=== PATIENT | female | born 1990 | race Caucasian/White ===

== ENCOUNTER 2019-04-17 21:19 | Emergency (ER) | payer OTHER, SELFPAY ==
[2019-04-17 21:19] VITALS: BP 122/83; PULSE 94; RESP 14; TEMP 36.7; O2SAT 100; BMI 24.1
[2019-04-17 22:11] LABS: Absolute Lymphocyte Count 2.12 X10^3/uL (0.83-4.51); Absolute Neutrophil Count 4.1 X10^3/uL (2.0-7.7); Basophil# 0.03 X10^3/uL; Basophil% 0.4 % (0-1); Eosinophil# 0.13 X10^3/uL; Eosinophils% 1.9 % (0-5); Hematocrit 40.7 % (37-47); Hemoglobin 13.5 g/dL (12.0-15.0); Lymphocyte # 2.12 X10^3/ul (4.0); Lymphocyte % 30.3 % (19-41); Mean Corp Hgb Conc 33.2 g/dL (32-36); Mean Corpuscular Volume 90.4 fL (81-99); Mean Platelet Vol. 9.4 fl (6.2-12.0); Monocyte# 0.61 X10^3/uL; Monocyte% 8.7 % (0-10); NRBC Flagged by Analyzer 0 % (0-5); Neutrophil # 4.08 X10^3/uL (2.7-7.7); Neutrophil % 58.4 % (47-70); Platelet Count 267 K/mm3 (150-450); RBC Distribution Width CV 12.1 % (11.6-14.6); RBC Distribution Width SD 39.7 fl (35.1-43.9)
[2019-04-17 22:12] LABS: Internal QC Validated? YES +Cl - CLEAR BKGD; Pregnancy, Serum, hCG Quali. NEGATIVE Negative
[2019-04-17 22:17] LABS: Anion Gap 8 (5-15); BUN 10 mg/dL (7-18); BUN/Creat Ratio 10.2 RATIO (10-20); Calcium,Total 9.2 mg/dL (8.5-10.1); Chloride 107 mmol/L (98-107); Creatinine, Serum 0.98 mg/dL (0.55-1.02); EST Glomerular Filtration Rate 73 mL/min (>60); Est Glom Filt Rate - Afr Amer 88 mL/min (>60); Estimated Creatinine Clearance 78.28 ml/min; Glucose 106 mg/dL (74-106); Potassium 3.7 mmol/L (3.5-5.1); Sodium Level 140 mmol/L (136-145)
--- NOTE | 2019-04-17 22:17 | ED.VIS.GEN ---
History of Present Illness Chief Complaint: Abd Pain Informant: Patient Onset: Today Narrative: Lower abdominal pain suddenly 1 hour prior to arrival, sharp in nature. Intermittent nausea secondary to pain. No vomiting. Normal bowel movements. No urinary symptoms. Last menstrual period 3 weeks ago. Denies history of kidney stones. Took Motrin with no relief. States had ovarian cyst requiring drainage in the past. No allergies. No past medical history. Prior similar symptoms: No Past Medical History - Allergies and Home Meds Allergies/Adverse Reactions: Allergies No Known Allergies Allergy (Verified 04/17/19 21:19) Primary Care Physician: Goran Oneil PA [Primary Care Provider] - Past Medical History: - - Ovarian cysts Surgical History: tonsillectomy Smoking Status: Never smoker Review of Systems General: Denies: Chills, Fever, Sweats Eyes: Denies: Visual changes - bilaterally, Diplopia ENT: Denies: Rhinorrhea, Sore throat Cardiovascular: Denies: Chest pain, Palpitations Respiratory: Denies: Dyspnea, Cough, Dyspnea on exertion Gastrointestinal: Reports: Abdominal pain. Denies: Nausea, Vomiting, Diarrhea, Melena, Hematochezia Genitourinary: Denies: Dysuria, Hematuria, Frequency Musculoskeletal: Denies: Back pain, Extremity Pain Skin: Denies: Rash, Wounds Neurological: Denies: Headache, Weakness, Numbness Physical Exam Vital Signs/Narrative: Vital Signs Temp Pulse Resp BP Pulse Ox 04/17/19 21:19 98.0 F 94 14 122/83 H 100 Inital Vital Signs reviewed: Yes General: Well nourished, Well developed, No Acute Distress Head: Normocephalic, Atraumatic Eyes: Perrl, EOMI ENT: Moist mucous membranes, No rhinorrhea Neck: Supple, Nontender Cardiovascular: Regular rate, Regular rhythm, No murmurs Respiratory: No distress, CTA bilaterally, Chest nontender Abdomen: Soft, Nondistended, Normal bowel sounds, - - Mild tenderness left lower abdomen pelvis without guarding or rebound. Back: Nontender, Normal Inspection Extremities: Nontender, No edema Skin: Normal color, No rash Neurological: Alert, Oriented x3, Cranial nerves II-XII grossly intact, Normal Strength, Normal Sensation Psychological: Normal affect, Normal Mood Diagnostic/Tx/Re-eval Abnormal Lab Results 04/17/19 04/17/19 04/17/19 21:25 21:25 21:25 WBC 7.0 RBC 4.50 Hgb 13.5 Hct 40.7 MCV 90.4 MCH 30.0 MCHC 33.2 RDW Std Deviation 39.7 RDW Coeff of Jody 12.1 Plt Count 267 MPV 9.4 Immature Gran % (Auto) 0.300 Neut % (Auto) 58.4 Lymph % (Auto) 30.3 [place] % (Auto) 8.7 Eos % (Auto) 1.9 Baso % (Auto) 0.4 Absolute Neuts (auto) 4.1 Absolute Lymphs (auto) 2.12 Nucleated RBC % 0 Sodium 140 Potassium 3.7 Chloride 107 Carbon Dioxide 25.0 Anion Gap 8 BUN 10 Creatinine 0.98 Estim Creat Clear Calc 78.28 Est GFR (MDRD) Af Amer 88 Est GFR (MDRD) Non-Af 73 BUN/Creatinine Ratio 10.2 Glucose 106 Calcium 9.2 Serum , Qual NEGATIVE Urine Color Urine Clarity Urine pH Ur Specific [place] Urine Protein Urine Glucose (UA) Urine Ketones Urine Occult Blood Urine Nitrite Urine Bilirubin Urine Urobilinogen Ur Leukocyte Esterase Urine RBC Urine WBC Ur Squamous Epith Cells Urine Bacteria Hyaline Casts Urine Mucus 04/17/19 22:27 WBC RBC Hgb Hct MCV MCH MCHC RDW Std Deviation RDW Coeff of Jody Plt Count MPV Immature Gran % (Auto) Neut % (Auto) Lymph % (Auto) [place] % (Auto) Eos % (Auto) Baso % (Auto) Absolute Neuts (auto) Absolute Lymphs (auto) Nucleated RBC % Sodium Potassium Chloride Carbon Dioxide Anion Gap BUN Creatinine Estim Creat Clear Calc Est GFR (MDRD) Af Amer Est GFR (MDRD) Non-Af BUN/Creatinine Ratio Glucose Calcium Serum , Qual Urine Color Yellow Urine Clarity Clear Urine pH 5.0 Ur Specific [place] 1.030 Urine Protein 15 H Urine Glucose (UA) Normal Urine Ketones 5 H Urine Occult Blood Negative Urine Nitrite Negative Urine Bilirubin Negative Urine Urobilinogen Normal Ur Leukocyte Esterase Negative Urine RBC 0 SEEN Urine WBC 0-5 SEEN Ur Squamous Epith Cells 0-5 SEEN Urine Bacteria 0 SEEN Hyaline Casts 0-5 SEEN Urine Mucus 1+ Clinical Impression(s) from Imaging Studies Abdomen/Pelvis CT 04/17/19 22:32 IMPRESSION: Free pelvic fluid. 3.6 x 3.3 cm left ovary cyst. No evidence of appendicitis, acute intestinal pathology, or acute obstructive uropathy. Electronically Signed: Sergey Fong MD at 23:36 EST Tel , Service support , Clinical Impression(s) from Imaging Studies Abdomen/Pelvis CT 04/17/19 22:32 IMPRESSION: Free pelvic fluid. 3.6 x 3.3 cm left ovary cyst. No evidence of appendicitis, acute intestinal pathology, or acute obstructive uropathy. Electronically Signed: Sergey Fong MD at 23:36 EST Tel , Service support , Transvaginal US 04/17/19 23:07 IMPRESSION: Complex left ovary cyst measuring 4.4 x 3.0 x 2.6 cm. Dominant right ovary follicle measuring 13 x 11 x 8 mm. Moderate free pelvic fluid. No evidence of ovary torsion. Electronically Signed: Sergey Fong MD at 0:13 EST Tel , Service support , - Medical Decision Making Patient slightly uncomfortable, tender left lower quadrant pelvic region. Labs obtain normal, hCG negative. She is sent for CT scan negative for any obstructive uropathy, however noted left ovarian cyst of 3.6 x 3.3 cm. She was given morphine for her symptoms, with acute onset of symptoms, she is sent for ultrasound pelvis for further evaluation to rule out torsion. Results are pending at time also reevaluation patient is more comfortable. She reports she has seen Dr. Jamil in the past and had a lysis of her cyst 2 years ago as an outpatient. This will be planned for follow-up of her ultrasound returns with no significant concerns. 0017: Results of ultrasound returned noting 4.4 x 3.0 x 2.6 cm left complex cyst there is positive flow to the ovary. 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 All questions were answered. ED Disposition - Plan for ED Patient: Disposition: Home or Assisted Living Diagnosis: Left ovarian cyst Instructions: Ovarian Cyst Referrals: Goran Oneil PA [Primary Care Provider] - Additional Instructions: Follow up with your [employer] Operator, Dr. Jamil for re-evaluation.
[2019-04-17 22:32] LABS: Bacteria 0 SEEN /hpf (None Seen); Red Blood Cells-Urine 0 SEEN /hpf (0-5)
--- NOTE | 2019-04-17 22:32 | CT_ITS ---
STUDY: CT ABDOMEN AND PELVIS WITHOUT CONTRAST REASON FOR EXAM: Female, 28 years old. 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 RADIATION DOSAGE (If Supplied By Facility): CTDIvol = ( 11.40 ) mGy, DLP = ( 547.00 ) mGycm TECHNIQUE: Transaxial images were obtained from the dome of the diaphragm to the symphysis pubis without oral contrast, and without intravenous contrast. Sagittal and coronal images were reconstructed. Individualized dose optimization techniques were used for this CT. COMPARISON: None. FINDINGS: The visualized lung bases are unremarkable. The visualized portions of the heart are within normal limits. Normal liver. Normal gallbladder and extrahepatic biliary system. Normal spleen. Normal pancreas. Normal bilateral adrenal glands. Normal right kidney. Normal left kidney. Normal visualized stomach. Normal small intestine. Normal colon. The appendix is visualized and appears normal. Normal abdominal aorta. Normal inferior vena cava. Normal retroperitoneum. Normal urinary bladder. Free pelvic fluid. 3.6 x 3.3 cm left ovary cyst. Normal abdominal wall. Normal osseous structures. CT/Abdomen/Pelvis without Cont IMPRESSION: Free pelvic fluid. 3.6 x 3.3 cm left ovary cyst. No evidence of appendicitis, acute intestinal pathology, or acute obstructive uropathy. Electronically Signed: Sergey Fong MD at 23:36 EST Tel , Service support ,
[2019-04-17] MEDS: 0.9% Normal Saline 1,000 ML 999 ML IV (22:33)
[2019-04-17] MEDS: Morphine 4 MG/ML Syringe IV (22:33)
[2019-04-17 22:44] LABS: Color, Urine Yellow (Yellow); Glucose, Dipstick Normal (Normal); Ketone-Dipstick 5 mg/dl (Negative); Leukocyte Esterase-Dipstick Negative /ul (Negative); Nitrite-Dipstick Negative (Negative); Occult Blood-Urine Negative /ul (Negative); Protein-Dipstick 15 mg/dl (Negative); Urine Bilirubin Dipstick Negative (Negative); Urine Clarity Clear (Clear); Urine Urobilinogen Normal (Normal)
--- NOTE | 2019-04-17 23:07 | US_ITS ---
STUDY: ULTRASOUND OF THE FEMALE PELVIS - COMPLETE REASON FOR EXAM: Female, 28 years old. LOWER PELVIC PAIN X 2 HOURS SEVERE LMP: 03/29/2019 TECHNIQUE: Transvaginal TECHNICAL QUALITY: Adequate. COMPARISON: CT same day FINDINGS: The uterus is anteverted and is in a midline position. The uterus measures 8.3 x 5.0 x 3.2 cm. There is a Nabothian cyst of the cervix. The endometrium measures 10 mm in thickness, and is hyperechoic. There is no demonstrated endometrial mass. There is no demonstrated myometrial mass. I.U.D. - The patient does not have an I.U.D. The right ovary is visualized. The right ovary measures 3.1 x 2.3 x 1.7 cm. Dominant right ovary follicle measuring 13 x 11 x 8 mm. There is no visualized right adnexal mass or complex lesion. There is normal arterial and normal venous vascularity. The left ovary is visualized. The left ovary measures 5.9 x 4.6 x 3.6 cm. Complex left ovary cyst measuring 4.4 x 3.0 x 2.6 cm. There is no visualized left adnexal mass or complex lesion. There is normal arterial and normal venous vascularity. There is a moderate amount of fluid in the cul-de-sac. Polycystic ovary disease: No. US/Transvaginal Non- IMPRESSION: Complex left ovary cyst measuring 4.4 x 3.0 x 2.6 cm. Dominant right ovary follicle measuring 13 x 11 x 8 mm. Moderate free pelvic fluid. No evidence of ovary torsion. Electronically Signed: Sergey Fong MD at 0:13 EST Tel , Service support ,
[2019-04-17 23:19] LABS: Hyaline Cast 0-5 SEEN /lpf (0-5); Mucous, Urine 1+ /hpf (<or=2+); Squamous Epithelial Cells - UA 0-5 SEEN /hpf (5-10); White Blood Cells 0-5 SEEN /hpf (0-5)
[2019-04-18 00:37] VITALS: PULSE 82; RESP 16; O2SAT 100; O2SAT 910
== END 2019-04-18 00:38 | disposition home or self-care (01) ==
PROVIDERS: Emergency Provider Emergency Medicine; PCP Physician Assistant; Referring Provider Physician Assistant
DX: N83.202 Unspecified ovarian cyst, left side (principal); R10.2 Pelvic and perineal pain
CPT/HCPCS: 74176; 76830; 80048; 81001; 84703; 85025; 93976; 96361; 96374; 99283; J7030; A4216

== ENCOUNTER 2022-02-09 18:45 | Inpatient (IN) | payer OTHER, SELFPAY ==
[2022-02-09] VITALS (13 sets, daily range): BP systolic 130–145; BP diastolic 86–98; PULSE 74–101; TEMP 36.6–36.9; O2SAT 97–98; BMI 33.4
[2022-02-09 17:48] LABS: Hematocrit 34.2 % (37-47); Hemoglobin 11.7 g/dL (12.0-15.0); Mean Corp Hgb Conc 34.2 g/dL (32-36); Mean Corpuscular Hgb 31.1 pg (27.0-32.0); Mean Platelet Vol. 9.4 fl (6.2-12.0); Platelet Count 229 K/mm3 (150-450); RBC Distribution Width CV 12.7 % (11.6-14.6); RBC Distribution Width SD 41.6 fl (35.1-43.9); Red Blood Count 3.76 M/mm3 (4.2-5.4); White Blood Count 11.2 K/mm3 (4.4-11.0)
[2022-02-09 18:10] LABS: AST(SGOT) 16 U/L (15-37); Alanine Aminotransfer ALT/SGPT 20 U/L (13-56); Creatinine, Serum 0.57 mg/dL (0.55-1.02); EST Glomerular Filtration Rate 134 mL/min (>60); Est Glom Filt Rate - Afr Amer 162 mL/min (>60); Estimated Creatinine Clearance 131.04 ml/min; Uric Acid 4.4 mg/dL (2.6-6.0)
[2022-02-09 18:26] LABS: Protein, Urine (Random) < 6.0 mg/dL (<11.9)
--- NOTE | 2022-02-09 19:04 | PCM.HP.OB ---
HPI - General General Date of Admission: 02/09/22 HPI Narrative ALLISON MACK, is a 31 F at 37.1 weeks gestation who was sent over from the office for elevated blood pressures. She presented to unit and denies any headaches, vision changes, RUQ pain or swelling. Blood pressures while here on unit remain 130-140/80-90's. PIH labs within normal range. complicated by GDM A2, Hx of ADD, Hx of HSV, and arrhythmia that has resolved. Maternal Data Information LC Calculator Estimated Delivery Date Method Current WG Current Estimate 03/01/22 Manual 37w 1d PFSH [facility] Medical History Puncture wound of plantar aspect of left foot Home Medications dextroamphetamine-amphetamine ER 25 mg 24hr capsule,extend release (Adderall XR) 25 mg PO DAILY 07/14/20 [History Last Taken Unknown] fluconazole 150 mg tablet (Diflucan) 150 mg PO Q3D 2 doses #2 tabs 09/16/20 [Rx Last Taken Unknown] cephalexin 500 mg capsule 500 mg PO Q8H #30 caps 11/09/21 [Rx Last Taken Unknown] Novolin N Flexpen 3 ml OTHER DAILY 02/09/22 [History Last Taken 02/08/22 22:00] PNV #[id number] acid-dha 1 cap PO/SL DAILY 02/09/22 [History Last Taken 02/09/22 16:54] magnesium 200 mg tablet 200 mg PO DAILY 02/09/22 [History Last Taken Unknown] valacyclovir 1 gram tablet (Valtrex) 1,000 mg PO DAILY 02/09/22 [History Last Taken Unknown] Allergy/AdvReac Type Severity Reaction Status Date / Time grass pollen Allergy Mild RUNNY NOSE Verified 09/28/20 13:41 Surgical History Hx of tonsillectomy Social History Smoking Status: Never smoker alcohol intake: current substance use type: does not use NST FHR Rate Baby A Baseline: 125 Variability:: Moderate Accelerations:: 15 x 15 Decelerations:: None NST Reactive:: Yes FHR Category:: Category I Uterine Activity:: NONE ROS Eyes Eyes: Denies blurry vision, change in vision or spots in vision ENT HEENT: Denies dizziness or headache(s) Cardiovascular Cardiovascular: Denies abdominal pain, chest pain or dyspnea Respiratory/Chest Respiratory/Chest: Denies cough, dyspnea, shortness of breath at rest or shortness of breath with exertion Gastrointestinal Gastrointestinal: Denies abdominal pain, diarrhea or vomiting Genitourinary Genitourinary: Denies change in urinary stream, difficulty urinating or dysuria Musculoskeletal Musculoskeletal: Reports none Integumentary Integumentary: Denies rash Neurologic Neurologic: Denies dizziness, headache(s), memory loss or weakness Psychiatric Psychiatric: Reports none Vital Signs Vital Signs Vital Signs: 02/09/22 16:52 02/09/22 16:52 02/09/22 16:52 Temperature Temperature Source Temporal Pulse Rate 91 Blood Pressure 145/97 H BP Systolic 145 BP Diastolic 97 02/09/22 16:52 02/09/22 17:07 02/09/22 17:07 Temperature 97.8 F Temperature Source Pulse Rate 77 Blood Pressure 141/90 H BP Systolic 141 BP Diastolic 90 02/09/22 17:23 02/09/22 17:23 02/09/22 17:37 Temperature Temperature Source Pulse Rate 86 Blood Pressure 130/98 H 130/90 H BP Systolic 130 130 BP Diastolic 98 90 02/09/22 17:37 02/09/22 17:53 02/09/22 17:53 Temperature Temperature Source Pulse Rate 90 87 Blood Pressure 130/86 H BP Systolic 130 BP Diastolic 86 02/09/22 18:07 02/09/22 18:07 02/09/22 18:23 Temperature Temperature Source Pulse Rate 77 Blood Pressure 136/87 H 142/88 H BP Systolic 136 142 BP Diastolic 87 88 02/09/22 18:23 02/09/22 18:37 02/09/22 18:37 Temperature Temperature Source Pulse Rate 85 101 H Blood Pressure 139/90 H BP Systolic 139 BP Diastolic 90 Weight Weight: 201 lb Body Mass Index (BMI) 33.4 Physical Exam Const alert, oriented x3 and no apparent distress General Appearance: cooperative Orientation / Consciousness: awake Exam Limitations: no limitations HEENT normocephalic Head and Scalp: normal to inspection Eyes General Eye: normal appearance of both eyes Neck full ROM and no lymphadenopathy Lymph Lymphatic: no lymphadenopathy noted Chest inspection of chest normal Resp normal respiratory effort, normal air movement and clear to auscultation bilaterally Effort and Inspection: able to speak in complete sentences and symmetric chest movement Cardio regular rate and regular rhythm GI normal to inspection, nondistended, normoactive bowel sounds Manual OB Exam: presentation cephalic Back/Spine normal ROM Extremity full ROM and no calf tenderness Skin no rashes or lesions noted General Skin Exam: no breakdown Neuro oriented x3 and CN's II-XII intact bilaterally Psych mental status grossly normal and thought process normal Labs Labs Labs: Blood Type Pending Antibody Screen Pending Hct 34.2 % (37-47) L Hgb 11.7 g/dL (12.0-15.0) L A+ Rubella- immune HB - neg HC neg HIV NR RPR- NR GBS negative Assessment & Plan (1) 37 weeks gestation of : (2) Gestational hypertension: (3) GDM, class A2: (4) arrhythmia affecting , antepartum: COMMENT: Normal echo and arrhythmia resolved on most recent BPP (5) History of herpes labialis: PLAN: Plan Admit to labor and delivery for induction NST reactive, Cat. 1 tracing HTN protocol activated GDM protocol activated TAUS confirms vertex position CE- closed/ thick/ high GBS negative Hx oral HSV- taking Valtrex PO daily Start Cytotec 25 mcg PV x 1 dose then increase to 50 mcg PV every [address] José involved with admission and will be assuming care of patient.
[2022-02-09] MEDS: Lactated Ringers 1,000 ML 50 ML IV (21:00)
[2022-02-09] MEDS: miSOPROStol 25 MCG TABLET VAGINAL (21:05)
[2022-02-09 21:46] LABS: Bedside Glucose 83 mg/dL (74-106)
[2022-02-09] MEDS: Acyclovir 200 MG Capsule 400 MG PO (21:55)
[2022-02-09] MEDS: Acetaminophen 500 MG Tablet PO (21:56)
[2022-02-09] MEDS: Insulin NPH Human 100 UNITS/ML PEN 9 UNITS SC (22:24)
[2022-02-09 22:36] LABS: Bedside Glucose 107 mg/dL (74-106)
[2022-02-10] VITALS (64 sets, daily range): BP systolic 100–154; BP diastolic 55–96; PULSE 61–107; RESP 16–18; TEMP 36.2–37.4; O2SAT 86–100
[2022-02-10] MEDS: 0.9% Saline Lock 10 ML Syringe IV ×3 (01:34→17:50)
[2022-02-10] MEDS: fentaNYL 100 MCG/2 ML Ampul IV ×3 (01:34→06:06)
[2022-02-10] MEDS: miSOPROStol 50 MCG TABLET PO (01:50)
[2022-02-10 02:10] LABS: Bedside Glucose 81 mg/dL (74-106)
[2022-02-10 05:46] LABS: Bedside Glucose 81 mg/dL (74-106)
[2022-02-10] MEDS: LACTATED RINGERS 500 ML 999 ML IV ×4 (05:50→11:10)
[2022-02-10] MEDS: HYDROmorphone 1 MG/ML Syringe IV (08:16)
[2022-02-10] MEDS: 0.9% Normal Saline Single 100 ML IV.SOLN. INTRA-UTER (08:45)
--- NOTE | 2022-02-10 09:12 | PCM.PN.BLA ---
Progress Note Patient seen at bedside. Tearful and reporting pain with contractions. Interested in pain medication at this time. Physical Exam Const alert and no apparent distress General Appearance: cooperative Orientation / Consciousness: awake Exam Limitations: no limitations HEENT normocephalic Eyes General Eye: normal appearance of both eyes Neck full ROM Chest inspection of chest normal Resp normal respiratory effort and normal air movement Effort and Inspection: symmetric chest movement Auscultation: clear to auscultation bilaterally Cardio regular rate GI soft to palpation, non-tender and non-distended Inspection: and other Back/Spine normal ROM Extremity full ROM, normal capillary refill and no calf tenderness Skin no rashes or lesions noted Neuro oriented x3 and CN's II-XII intact bilaterally Psych mental status grossly normal Assessment & Plan Assessment/Plan (1) 37 weeks gestation of : (2) Gestational hypertension: (3) GDM, class A2: (4) Anxiety: PLAN: Plan CE- 1/60/-3- Weinstein bulb placed without difficulty and balloon filled with 30 cc N/S NST reactive, Cat. 1 tracing Pain medication as indicated Epidural once weinstein bulb out DR. Arnav mcarthur
[2022-02-10 09:35] LABS: Bedside Glucose 104 mg/dL (74-106)
[2022-02-10] MEDS: Acyclovir 200 MG Capsule 400 MG PO ×2 (09:41→21:56)
[2022-02-10] MEDS: Oxytocin 15 Units/NS 250ml 15 UNITS/250 ML IV.SOLN 2 UNITS IV (09:45)
[2022-02-10] MEDS: Lactated Ringers 1,000 ML 200 ML IV (10:59)
[2022-02-10] MEDS: fentaNYL-bupivacaine (epidural) 100 ML BAG EPIDURAL (10:59)
[2022-02-10] MEDS: Ondansetron 4 MG/2 ML Vial IV (11:27)
--- NOTE | 2022-02-10 11:30 | HP.PCM.OB_ITS ---
HPI - General General Date of Admission: 02/09/22 Date of Service: 02/10/22 Chief Complaint: elevated BP HPI Narrative ALLISON MACK, is a 31-year-old 1 para 0 who presented at 37 weeks on 02/09/2022 to the office with increased blood pressure. She was sent to labor and delivery and found to have persistently elevated blood pressures consistent with gestational hypertension. She denied any headache or blurry vision. She had no epigastric pain. Her has been complicated to date by insulin- dependent gestational diabetes. Maternal Data Information LC Calculator Estimated Delivery Date Method Current WG Current Estimate 03/01/22 Manual 37w 2d Final LC: 03/02/22 Gestational age: 37 PFSH PFSH Medical History (Updated 02/10/22 @ 11:[address] Ivy José MD) Gestational diabetes Puncture wound of plantar aspect of left foot Home Medications dextroamphetamine-amphetamine ER 25 mg 24hr capsule,extend release (Adderall XR) 25 mg PO DAILY concentration 07/14/20 [History Last Taken 06/26/21] fluconazole 150 mg tablet (Diflucan) 150 mg PO Q3D 2 doses #2 tabs 09/16/20 [Rx Last Taken Unknown] cephalexin 500 mg capsule 500 mg PO Q8H #30 caps 11/09/21 [Rx Last Taken Unknown] Novolin N Flexpen 3 ml OTHER DAILY 02/09/22 [History Last Taken 02/08/22 22:00] PNV #41-[id number]-[id number] acid-dha 1 cap PO/SL DAILY 02/09/22 [History Last Taken 02/09/22 16:54] magnesium 200 mg tablet 200 mg PO DAILY 02/09/22 [History Last Taken Unknown] valacyclovir 1 gram tablet (Valtrex) 1,000 mg PO DAILY 02/09/22 [History Last Taken Unknown] Allergy/AdvReac Type Severity Reaction Status Date / Time grass pollen Allergy Mild RUNNY NOSE Verified 09/28/20 13:41 Surgical History Hx of tonsillectomy Social History Smoking Status: Never smoker alcohol intake: current substance use type: does not use History Elective abortions Hx Para 0 Spontaneous abortions Hx # Term Pregnancies Ectopic pregnancies Hx # Pregnancies Multiple births # of living children Visit Details OB Flowsheet Initial Weight: Not Recorded Date -?-?-?-?-?-?-?-?-?-?-?-?- EGA Weight BP Urine Prot -?-?-?-?-?-?-?-?-?-?-?-?- Glucose FHR FuHt Pres Dilation -?-?-?-?-?-?-?-?-?-?-?-?- Effaced St Visit Note 02/09/22 -?-?-?-?-?-?-?-?-?-?-?-?- 37w 1d 91.172 kg 145/97 141/90 130/98 130/90 130/86 136/87 142/88 139/90 136/91 142/90 114/68 137/92 142/96 129/86 144/85 134/86 135/89 154/93 135/86 132/77 128/77 124/73 125/73 117/67 117/72 115/67 113/64 111/69 100/55 104/58 123/76 115/66 -?-?-?-?--?-?-?-?-?-?-?-?- -?-?-?-?-?-?-?-?-?-?-?-?- ROS Constitutional Constitutional: Denies fatigue, fever(s) or malaise Eyes Eyes: Denies change in vision ENT HEENT: Denies dizziness or headache(s) Cardiovascular Cardiovascular: Denies chest pain, dyspnea or lightheadedness Respiratory/Chest Respiratory/Chest: Denies cough or dyspnea Gastrointestinal Gastrointestinal: Denies change in bowel habits Genitourinary Genitourinary: Denies burning urination or genital lesions Integumentary Integumentary: Denies rash Neurologic Neurologic: Denies confusion, dizziness, headache(s), numbness or weakness Vital Signs Vital Signs Vital Signs: 02/09/22 16:52 02/09/22 16:52 02/09/22 16:52 Temperature Temperature Source Temporal Pulse Rate 91 Blood Pressure 145/97 H BP Systolic 145 BP Diastolic 97 Pulse Ox 02/09/22 16:52 02/09/22 17:07 02/09/22 17:07 Temperature 97.8 F Temperature Source Pulse Rate 77 Blood Pressure 141/90 H BP Systolic 141 BP Diastolic 90 Pulse Ox 02/09/22 17:23 02/09/22 17:23 02/09/22 17:37 Temperature Temperature Source Pulse Rate 86 Blood Pressure 130/98 H 130/90 H BP Systolic 130 130 BP Diastolic 98 90 Pulse Ox 02/09/22 17:37 02/09/22 17:53 02/09/22 17:53 Temperature Temperature Source Pulse Rate 90 87 Blood Pressure 130/86 H BP Systolic 130 BP Diastolic 86 Pulse Ox 02/09/22 18:07 02/09/22 18:07 02/09/22 18:23 Temperature Temperature Source Pulse Rate 77 Blood Pressure 136/87 H 142/88 H BP Systolic 136 142 BP Diastolic 87 88 Pulse Ox 02/09/22 18:23 02/09/22 18:37 02/09/22 18:37 Temperature Temperature Source Pulse Rate 85 101 H Blood Pressure 139/90 H BP Systolic 139 BP Diastolic 90 Pulse Ox 02/09/22 19:47 02/09/22 19:47 02/09/22 20:35 Temperature Temperature Source Pulse Rate 75 Blood Pressure 136/91 H BP Systolic 136 BP Diastolic 91 Pulse Ox 98 02/09/22 20:35 02/09/22 20:35 02/09/22 20:37 Temperature Temperature Source Temporal Pulse Rate 79 94 Blood Pressure BP Systolic BP Diastolic Pulse Ox 02/09/22 20:37 02/09/22 20:35 02/09/22 22:22 Temperature 98.5 F Temperature Source Pulse Rate Blood Pressure 142/90 H BP Systolic 142 BP Diastolic 90 Pulse Ox 97 02/09/22 22:22 02/09/22 22:23 02/09/22 22:23 Temperature Temperature Source Pulse Rate 74 74 Blood Pressure BP Systolic BP Diastolic Pulse Ox 97 02/10/22 01:00 02/10/22 01:00 02/10/22 01:00 Temperature Temperature Source Temporal Pulse Rate 80 Blood Pressure 114/68 BP Systolic 114 BP Diastolic 68 Pulse Ox 02/10/22 01:00 02/10/22 04:06 02/10/22 04:06 Temperature 98.5 F Temperature Source Pulse Rate 73 Blood Pressure BP Systolic BP Diastolic Pulse Ox 97 02/10/22 04:11 02/10/22 04:11 02/10/22 05:20 Temperature Temperature Source Pulse Rate 77 Blood Pressure 137/92 H BP Systolic 137 BP Diastolic 92 Pulse Ox 97 02/10/22 05:20 02/10/22 05:21 02/10/22 05:21 Temperature Temperature Source Pulse Rate 76 69 Blood Pressure 142/96 H BP Systolic 142 BP Diastolic 96 Pulse Ox 02/10/22 05:20 02/10/22 05:20 02/10/22 05:23 Temperature 97.2 F L Temperature Source Temporal Pulse Rate 68 Blood Pressure BP Systolic BP Diastolic Pulse Ox 02/10/22 05:23 02/10/22 07:21 02/10/22 07:21 Temperature Temperature Source Pulse Rate 71 Blood Pressure 129/86 H BP Systolic 129 BP Diastolic 86 Pulse Ox 97 02/10/22 07:20 02/10/22 07:20 02/10/22 08:48 Temperature 97.4 F L Temperature Source Temporal Pulse Rate Blood Pressure 144/85 H BP Systolic 144 BP Diastolic 85 Pulse Ox 02/10/22 08:48 02/10/22 09:32 02/10/22 09:32 Temperature Temperature Source Pulse Rate 71 63 Blood Pressure 134/86 H BP Systolic 134 BP Diastolic 86 Pulse Ox 02/10/22 10:01 02/10/22 10:01 02/10/22 10:06 Temperature Temperature Source Pulse Rate 68 65 Blood Pressure BP Systolic BP Diastolic Pulse Ox 99 02/10/22 10:06 02/10/22 10:08 02/10/22 10:08 Temperature Temperature Source Pulse Rate 80 Blood Pressure 135/89 H BP Systolic 135 BP Diastolic 89 Pulse Ox 99 02/10/22 10:11 02/10/22 10:11 02/10/22 10:14 Temperature Temperature Source Pulse Rate 61 Blood Pressure 154/93 H BP Systolic 154 BP Diastolic 93 Pulse Ox 99 02/10/22 10:14 02/10/22 10:16 02/10/22 10:16 Temperature Temperature Source Pulse Rate 64 68 Blood Pressure BP Systolic BP Diastolic Pulse Ox 98 02/10/22 10:19 02/10/22 10:19 02/10/22 10:21 Temperature Temperature Source Pulse Rate 71 72 Blood Pressure 135/86 H BP Systolic 135 BP Diastolic 86 Pulse Ox 02/10/22 10:21 02/10/22 10:24 02/10/22 10:24 Temperature Temperature Source Pulse Rate 82 Blood Pressure 132/77 H BP Systolic 132 BP Diastolic 77 Pulse Ox 99 02/10/22 10:26 02/10/22 10:26 02/10/22 10:28 Temperature Temperature Source Pulse Rate 71 Blood Pressure 128/77 H BP Systolic 128 BP Diastolic 77 Pulse Ox 98 02/10/22 10:28 02/10/22 10:31 02/10/22 10:31 Temperature Temperature Source Pulse Rate 78 74 Blood Pressure 124/73 H BP Systolic 124 BP Diastolic 73 Pulse Ox 02/10/22 10:31 02/10/22 10:30 02/10/22 10:34 Temperature Temperature Source Temporal Pulse Rate Blood Pressure 125/73 H BP Systolic 125 BP Diastolic 73 Pulse Ox 98 02/10/22 10:34 02/10/22 10:30 02/10/22 10:36 Temperature 97.5 F L Temperature Source Pulse Rate 77 75 Blood Pressure BP Systolic BP Diastolic Pulse Ox 02/10/22 10:36 02/10/22 10:38 02/10/22 10:38 Temperature Temperature Source Pulse Rate 85 Blood Pressure 117/67 BP Systolic 117 BP Diastolic 67 Pulse Ox 98 02/10/22 10:41 02/10/22 10:41 02/10/22 10:43 Temperature Temperature Source Pulse Rate 66 Blood Pressure 117/72 BP Systolic 117 BP Diastolic 72 Pulse Ox 98 02/10/22 10:43 02/10/22 10:46 02/10/22 10:46 Temperature Temperature Source Pulse Rate 72 73 Blood Pressure BP Systolic BP Diastolic Pulse Ox 98 02/10/22 10:48 02/10/22 10:48 02/10/22 10:51 Temperature Temperature Source Pulse Rate 75 73 Blood Pressure 115/67 BP Systolic 115 BP Diastolic 67 Pulse Ox 02/10/22 10:51 02/10/22 10:54 02/10/22 10:54 Temperature Temperature Source Pulse Rate 70 Blood Pressure 113/64 BP Systolic 113 BP Diastolic 64 Pulse Ox 97 02/10/22 10:56 02/10/22 10:56 02/10/22 10:59 Temperature Temperature Source Pulse Rate 72 Blood Pressure 111/69 BP Systolic 111 BP Diastolic 69 Pulse Ox 99 02/10/22 10:59 02/10/22 11:01 02/10/22 11:01 Temperature Temperature Source Pulse Rate 80 65 Blood Pressure BP Systolic BP Diastolic Pulse Ox 99 02/10/22 11:12 02/10/22 11:12 02/10/22 11:12 Temperature Temperature Source Pulse Rate 71 Blood Pressure 100/55 L BP Systolic 100 BP Diastolic 55 Pulse Ox 99 02/10/22 11:15 02/10/22 11:15 02/10/22 11:17 Temperature Temperature Source Pulse Rate 85 82 Blood Pressure 104/58 L BP Systolic 104 BP Diastolic 58 Pulse Ox 02/10/22 11:17 02/10/22 11:20 02/10/22 11:20 Temperature Temperature Source Pulse Rate 107 H Blood Pressure BP Systolic BP Diastolic Pulse Ox 100 86 02/10/22 11:22 02/10/22 11:22 02/10/22 11:22 Temperature Temperature Source Pulse Rate 95 Blood Pressure 123/76 H BP Systolic 123 BP Diastolic 76 Pulse Ox 100 02/10/22 11:27 02/10/22 11:27 02/10/22 11:30 Temperature Temperature Source Pulse Rate 86 Blood Pressure 115/66 BP Systolic 115 BP Diastolic 66 Pulse Ox 100 Weight Weight: 91.172 kg Body Mass Index (BMI) 33.4 Physical Exam Const alert and no apparent distress General Appearance: cooperative HEENT normocephalic Resp normal respiratory effort Cardio regular rate GI soft to palpation GI Narrative: gravid, nontender, appropriate for gestational age Extremity no calf tenderness General Extremity: edema Skin no wounds Rashes: No rashes noted Psych activity/motor behavior normal Labs Labs Labs: Blood Type A POSITIVE Antibody Screen NEGATIVE Hct 34.2 % (37-47) L Hgb 11.7 g/dL (12.0-15.0) L Assessment & Plan (1) 37 weeks gestation of : PLAN: Risk benefits and alternatives to induction of labor due to gestational hypertension were discussed with the patient, her questions were answered to her satisfaction she desired to proceed. Estimated weight is less than 4500 g clinically and pelvis clinically adequate to expect vaginal delivery. Will undergo Cytotec, Rojas, possible artificial rupture membranes induction of labor. May have routine pain control measures as desired and needed. Patient has had class A2 gestational diabetes. Received 18 units of NPH in the evening. We will check blood sugars regularly. Will notify pediatric team. Patient given half her normal dose on 1118 in the evening. (2) Gestational hypertension, third trimester: (3) High-risk in third trimester:
[2022-02-10 12:15] LABS: Bedside Glucose 80 mg/dL (74-106)
[2022-02-10] MEDS: Cefazolin 2 GM in 0.9% Normal Saline 100 ML IV (14:35)
--- NOTE | 2022-02-10 14:50 | PLAC_PTH ---
PATIENT: ALLISON MACK LOC: [facility] U#:[id number] AGE/SX: 31/F ROOM: WP007 RE02/09/[address]: Griselda Castellanos CNM : 1990 BED: 1 DIS: 02/12/2022 SPEC #: [id number] RECD: 02/10/22 19:29 STATUS: KAMALJIT RETea #: [id number] RUI: 02/10/22 14:[address]: Ivy José DEPT: SURGICAL PATHOLOGY RECD BY: Maral Marsh ENTERED: 02/12/22 10:26 SP TYPE: PLACENTA OTHR DR: Griselda Castellanos CNM MARTINE Anne Tissues: Placenta, NOS Procedures: Surgery Specimen Level V Comments: @ Ordering doctor for SUV edited from [email or web address] to @ by TOLU at 02/12/221531 @ Submitting doctor edited from [email or web address] to @ by TOLU at 02/12/22 1532 HEADER OPERATION: Primary section PRE-OP DIAGNOSIS: Gestational hypertension, gestational diabetes TISSUE SUBMITTED: Placenta MICROSCOPIC DIAGNOSIS Placenta: Placental disc - third trimester placenta (395 gm). - Focal area of intraparenchymal hemorrhage (0.5 cm in greatest dimension). 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 - Multiple areas of chronic villitis of unknown etiology and increased intervillous and perivillous fibrin deposition. Membranes - no pathologic diagnosis. Umbilical cord - three blood vessels and no pathologic diagnosis. SJ:rg 02/13/2022 COMMENT Case has been reviewed in consultation with Dr. Sen who concurs with the above diagnosis. IDC:AM MICROSCOPIC DESCRIPTION Slides are reviewed. GROSS DESCRIPTION SPECIMEN: PLACENTA / CLINICAL INFORMATION: A. Weight: 2.87 kg B. Gestational Age: 37 weeks C. Sex: Female PLACENTAL WEIGHT (POST FIXATION): 395 gm PLACENTAL DIMENSIONS: 16.5 x 16 x 3 cm PLACENTAL SHAPE: Usual ovoid PLACENTAL WEIGHT FOR GESTATIONAL AGE: Within 10-99th percentile MEMBRANES - Present A. Insertion: Marginal B. Site of rupture from edge: 3 cm from edge of placental disc C. Color of membrane: Johnson-armando D. Abnormalities: None UMBILICAL CORD - Present A. Color: Johnson-armando B. Insertion: Paracentral C. Length: 40 cm D. Diameter: 1 cm E. Number of vessels: Three F. Abnormalities: None PLACENTAL DISC - Present A. Color of surface: Johnson-armando B. surface abnormalities: None C. Maternal cotyledons: Intact with minimal tears D. Attached retro placental clot: No clot E. Cut surface: Dark red and spongy F. Lesions: Sections reveal a johnson, indurated lesions measuring 0.5 cm in greatest dimension and an ill-defined johnson, indurated area. G. Separate clot: Absent SECTIONS SUBMITTED: 1. Membrane roll 2. Cord, maternal end 3. Cord, end, johnson indurated lesion 4. Placental disc, and maternal surfaces 5. Placental disc, and maternal surfaces, ill-defined, indurated area. 6. Placental disc, and maternal surfaces BECKY:quirino 02/12/2022 TC:5 CPT: 07246
--- NOTE | 2022-02-10 15:19 | EX.PCM.OBRPT ---
Assessment & Plan (1) Category II heart rate tracing during labor and delivery: (2) intolerance to labor, delivered, current hospitalization: (3) Single live : (4) delivery delivered: (5) High-risk in third trimester: (6) Gestational hypertension, third trimester: (7) 37 weeks gestation of : Maternal Data Information LC Calculator Estimated Delivery Date Method Current WG Current Estimate 03/01/22 Manual 37w 2d Final LC: 03/01/22 Gestational age: 37 2/7 Details Operative Information Date of Procedure: 02/10/22 Pre-Operative Diagnosis: intolerance of labor, persistent category 2 heart tracing remote from delivery Classification: BERTA Procedure Type: low transverse commercial technician #1: Perla Harding Type of Anesthesia: Epidural Anesthesiologist: Jeannie Swanson Antibiotic Given: Ancef 2 grams IV x1 and Zithromax 500 mg/5 mL X1 Drain: Rojas to straight drain Estimated Blood Loss: 800 Fluids Replaced: 1000 Procedure Start Time: 14:49 Procedure Stop Time: 15:22 Time of Delivery: 14:50 Findings Description of Procedure: The patient was taken to the operating room. She was prepped and draped in the dorsal supine position with a leftward tilt. A Pfannenstiel skin incision was made approximately 2 cm above the symphysis pubis and carried through to underlying layer fascia with the scalpel. The fascia was incised incised in the midline and extended laterally with the Stephens scissors. The fascia was dissected off the rectus muscles with blunt and sharp dissection. The rectus muscles were in the midline and the peritoneum was entered bluntly. The peritoneal incision was stretched and the bladder blade was placed. The uterine incision was made in a low transverse fashion with the scalpel and extended superiorly and inferiorly with blunt dissection. The amniotic membranes were ruptured bluntly and clear amniotic fluid returned. The 's head was brought to the incision in the flexed position and delivered without difficulty. The remainder of the was delivered with gentle traction and fundal pressure in the standard fashion. The mouth and nares were bulb suctioned. The cord was clamped and cut as the infant was stimulated. Cord clamping was delayed. The infant was handed off to the waiting nursing staff. The placenta was delivered with fundal massage and gentle traction in the standard fashion. The uterus was exteriorized and cleared of all clots and debris. . The uterine incision was closed with #1 Vicryl in a running locked fashion. A second layer of the same suture was used in an imbricating fashion. Several mexgib-qi-lacea sutures were needed in a sinus on the left side to obtain hemostasis. The incision was examined and was found to be hemostatic. Some Ly was placed over the incision. The uterus was placed back into the peritoneal cavity and hemostasis was again confirmed. The rectus muscles were examined and any bleeding was Bovie cauterized. The parietal peritoneum and rectus muscles were closed en bloc with an 0 Vicryl running suture. The surgical teams outer gloves were then changed. The rectus fascia was examined and any bleeding was Bovie cauterized and the rectus fascia was closed with 1 Vicryl suture in a running standard fashion. The subcutaneous tissue was examining and any bleeding was Bovie cauterized. The subcutaneous tissue was reapproximated with 3-0 Vicryl suture. The skin was closed in a subcuticular fashion by the CONFIGURATION CONSULTANT with me present in the labor and delivery suite. I performed the remainder of the procedure with assistance. All sponge, lap, and needle counts were correct. The patient was taken to her room for recovery in a stable condition.
[2022-02-10] MEDS: Oxytocin 15 Units/NS 250ml 15 UNITS/250 ML IV.SOLN 83 UNITS IV (15:40)
[2022-02-10 17:25] LABS: Bedside Glucose 90 mg/dL (74-106)
[2022-02-10] MEDS: Acetaminophen 500 MG Tablet 1000 MG PO (17:47)
[2022-02-10] MEDS: Ketorolac 30 MG/ML Syringe IV (17:47)
[2022-02-10] MEDS: Lactated Ringers 1,000 ML 100 ML IV (21:13)
[2022-02-11] VITALS (7 sets, daily range): BP systolic 105–126; BP diastolic 67–80; PULSE 64–80; RESP 16–18; TEMP 36.6–37; O2SAT 96–98
[2022-02-11] MEDS: Acetaminophen 500 MG Tablet 1000 MG PO ×4 (00:04→18:07)
[2022-02-11] MEDS: Ketorolac 30 MG/ML Syringe IV ×3 (00:04→12:34)
[2022-02-11 05:16] LABS: Hematocrit 29.8 % (37-47); Hemoglobin 10.3 g/dL (12.0-15.0); Mean Corp Hgb Conc 34.6 g/dL (32-36); Mean Corpuscular Hgb 31.7 pg (27.0-32.0); Mean Corpuscular Volume 91.7 fL (81-99); Mean Platelet Vol. 9.1 fl (6.2-12.0); Platelet Count 181 K/mm3 (150-450); RBC Distribution Width CV 12.9 % (11.6-14.6); RBC Distribution Width SD 42.5 fl (35.1-43.9); Red Blood Count 3.25 M/mm3 (4.2-5.4); White Blood Count 11.3 K/mm3 (4.4-11.0)
[2022-02-11 05:21] LABS: Bedside Glucose 137 mg/dL (74-106)
--- NOTE | 2022-02-11 05:41 | NURSING ---
Fasting blood sugar 137, update given to Tamika DAS. No new orders received.
--- NOTE | 2022-02-11 08:41 | PCM.PN.OB ---
Subjective Subjective Patient resting quietly. Denies any headache, vision changes, dizziness, CP or SOB. with support. Pain is controlled at this time. Ambulating and voiding. Anticipate discharge home tomorrow. Objective Data Objective Data Vital Signs: Vital Signs Temp Pulse Resp BP Pulse Ox O2 Del Method 98.4 F 68 16 114/70 96 Room Air 02/11/22 07:47 02/11/22 07:47 02/11/22 07:47 02/11/22 07:47 02/11/22 07:47 02/11/22 07:47 Oxygen Delivery Method Room Air Weight: 201 lb Body Mass Index (BMI) 33.4 Intake & Output: Intake and Output for Last 24 Hours 02/09/22 02/10/22 02/11/22 23:59 23:59 23:59 Intake Total 4604.47 / 4604.47 490 / 490 Output Total 3100 / 3100 500 / 500 Balance 1504.47 / 1504.47 -10 / -10 Lab / Micro Data Result Diagrams: 02/11/22 05:00 02/09/22 17:20 Labs: Laboratory Results - last 24 hr 02/10/22 09:16: POC Glucose 104 02/10/22 11:55: POC Glucose 80 02/10/22 16:24: POC Glucose 90 02/11/22 04:53: POC Glucose 137 H 02/11/22 05:00: WBC 11.3 H, RBC 3.25 L, Hgb 10.3 L, Hct 29.8 L, MCV 91.7, MCH 31.7, MCHC 34.6, RDW Std Deviation 42.5, RDW Coeff of Jody 12.9, Plt Count 181, MPV 9.1 ROS Eyes Eyes: Denies blurry vision, change in vision or spots in vision ENT HEENT: Denies dizziness or headache(s) Cardiovascular Cardiovascular: Denies abdominal pain, chest pain or dyspnea Respiratory/Chest Respiratory/Chest: Denies cough, dyspnea, shortness of breath at rest or shortness of breath with exertion Gastrointestinal Gastrointestinal: Denies abdominal pain, diarrhea or vomiting Genitourinary Genitourinary: Denies change in urinary stream, difficulty urinating or dysuria Musculoskeletal Musculoskeletal: Reports none Integumentary Integumentary: Denies rash Neurologic Neurologic: Denies dizziness, headache(s), memory loss or weakness Physical Exam Narrative Dressing is dry and intact Const alert and no apparent distress General Appearance: cooperative and comfortable Exam Limitations: no limitations HEENT normocephalic Eyes General Eye: normal appearance of both eyes Neck full ROM General: normal visual inspection Chest Chest: symmetrical chest wall rise Resp normal respiratory effort and normal air movement Effort and Inspection: symmetric chest movement Auscultation: clear to auscultation bilaterally Cardio regular rate and regular rhythm GI normal to inspection, nondistended, normoactive bowel sounds Back/Spine normal ROM Extremity full ROM and no calf tenderness General Extremity: normal exam except as noted Skin no rashes or lesions noted Neuro CN's II-XII intact bilaterally Psych mental status grossly normal Assessment & Plan (1) delivery delivered: (2) Gestational hypertension, third trimester: (3) GDM, class A2: (4) Care and examination of lactating mother: PLAN: Plan POD 1 Primary C/S Blood pressures within normal ranges Fasting blood glucose today- 135- will repeat tomorrow am Pain control Increase ambulation support
[2022-02-11] MEDS: Acyclovir 200 MG Capsule 400 MG PO ×2 (10:14→21:10)
[2022-02-11] MEDS: Senna/Docusate Sodium 1 Tablet PO (10:14)
[2022-02-11] MEDS: 0.9% Saline Lock 10 ML Syringe IV (12:35)
[2022-02-11] MEDS: Ibuprofen 600 MG Tablet PO (18:07)
[2022-02-12] MEDS: Ibuprofen 600 MG Tablet PO ×2 (00:19→06:13)
[2022-02-12] MEDS: Acetaminophen 500 MG Tablet 1000 MG PO ×2 (00:19→06:12)
[2022-02-12 01:59] VITALS: BP 130/88; PULSE 86; RESP 14; TEMP 36.6
--- NOTE | 2022-02-12 07:28 | DS.PCM_ITS ---
Providers Date of Admission: 02/09/22 Primary Care Physician: MARTINE Jhaveri Reason For Visit: PRIMARY C SECTION Diagnosis Discharge Diagnosis (1) delivery delivered: Status: Acute Code(s): O82 - Encounter for delivery without indication (2) Gestational hypertension, third trimester: Status: Acute Code(s): O13.3 - Gestational [-induced] hypertension without significant proteinuria, third trimester (3) GDM, class A2: Status: Acute Code(s): O24.419 - Gestational diabetes mellitus in , unspecified control (4) Care and examination of lactating mother: Status: Acute Code(s): Z39.1 - Encounter for care and examination of lactating mother Plan Blood pressures within normal ranges Pain control Increase ambulation support Medications at Discharge Home Medications PNV #96-fuik-pohig acid-dha 1 cap PO/SL DAILY 02/09/22 Hospital Course Operations section Summary of Care Provided Hospital Course: Patient was here for primary section. Hospital course was uneventful Physical Exam Narrative Patient seen at bedside. . Feeling good. Pain is controlled with PO Motrin and Tylenol. Desires discharge home today. Denies headache, vision changes, SOB or CP. Ambulating and voiding without difficulty. Passing flatus. Dressing is dry and intact. Const alert and no apparent distress General Appearance: cooperative and comfortable Exam Limitations: no limitations HEENT normocephalic Eyes General Eye: normal appearance of both eyes Neck full ROM General: normal visual inspection Chest Chest: symmetrical chest wall rise Resp normal respiratory effort and normal air movement Effort and Inspection: symmetric chest movement Auscultation: clear to auscultation bilaterally Cardio regular rate and regular rhythm GI normal to inspection, nondistended, normoactive bowel sounds Back/Spine normal ROM Extremity full ROM and no calf tenderness General Extremity: normal exam except as noted Skin no rashes or lesions noted Neuro CN's II-XII intact bilaterally Psych mental status grossly normal Weight / BMI Weight Weight: 201 lb Body Mass Index (BMI) 33.4 ABG / Lab / Microbiology Data Result Diagrams: 02/11/22 05:00 02/09/22 17:20 D/C Instructions Discharge Diet: No restrictions Discharge Activity: May Shower May resume sexual activity in: 6-8 weeks Weight Bearing Status: Weight bearing as tolerated Call your doctor if your incision/area has: Continuous Slow Oozing, Sudden Increased Bleeding, Increased Pain/ Swelling, Increased Redness, Foul Smelling Discharge and Swelling at the incision site Call your doctor if you observe: Fever of 101 or Higher, Inability to have a bowel movement, Using more than 1 pad per hour, Shortness of breath, Dizziness, Chest pain, Calf discomfort and Uncontrolled pain Change Dressing in: leave in place till F/U Remove Dressing in: leave in place till F/U Please Follow Up With: Mei Vargas MD When: 1 week for incision check Meaningful Use Info Meaningful Use Diagnoses (Choose all that apply): None applicable Discharge Plan Admission Admit Date/Time: 02/09/22 18:45 Attending Provider: Griselda Castellanos Primary Care Provider: Goran Oneil Discharge Orders/Prescriptions Prescriptions: Continued PNV #[id number] acid-dha 1 cap PO/SL DAILY Discontinued dextroamphetamine-amphetamine [Adderall XR] 25 mg capsule,extended release 24 hr 25 mg PO DAILY fluconazole [Diflucan] 150 mg tablet 150 mg PO Q3D Qty: 2 0RF Rx Instructions: may repeat second dose 72 hrs after first dose if symptoms persist cephalexin 500 mg capsule 500 mg PO Q8H Qty: 30 0RF valacyclovir [Valtrex] 1 gram Tablet 1,000 mg PO DAILY Novolin N Flexpen 3 ml OTHER DAILY magnesium 200 mg Tablet 200 mg PO DAILY Referrals / Follow Up: Goran Oneil PA [Primary Care Provider] - Disposition Disposition (needs filled in before D/C Order can be placed): Home, Self Care
[2022-02-12 08:11] VITALS: BP 122/83; PULSE 77; RESP 16; TEMP 36.8; O2SAT 98
[2022-02-12] MEDS: Senna/Docusate Sodium 1 Tablet PO (10:00)
[2022-02-12] MEDS: Acyclovir 200 MG Capsule 400 MG PO (10:00)
[2022-02-14 15:39] LABS: Pathology Specimen OB SEE PATHOLOGY REPORT
== END 2022-02-12 10:45 | disposition home or self-care (01) | DRG 787 ==
LOC: WPOUT 18:50 → WP 18:50
PROVIDERS: Obstetrics & Gynecology; Admitting Provider Advanced Practice Midwife; PCP Physician Assistant; Referring Provider Advanced Practice Midwife; Visit Provider Advanced Practice Midwife
DX: O13.4 Gestational [pregnancy-induced] hypertension without significant proteinuria, complicating childbirth (principal); O98.52 Other viral diseases complicating childbirth; O24.429 Gestational diabetes mellitus in childbirth, unspecified control; Z79.4 Long term (current) use of insulin; F41.9 Anxiety disorder, unspecified; O99.344 Other mental disorders complicating childbirth; Z37.0 Single live birth; Z3A.37 37 weeks gestation of pregnancy; O76 Abnormality in fetal heart rate and rhythm complicating labor and delivery; B00.1 Herpesviral vesicular dermatitis; Z79.899 Other long term (current) drug therapy
CPT/HCPCS: 59025; 59050; 76815; 82565; 82570; 82962; 84156; 84450; 84460; 84550; 85027; 86850; 86900; 86901; 88307; 99218; 99251; J7120; A4216; G0378; G0463; J2405

== ENCOUNTER 2023-06-13 15:48 | Emergency (ER) | payer OTHER, SELFPAY ==
[2023-06-13 15:49] VITALS: BP 162/94; PULSE 95; RESP 18; TEMP 36.7; O2SAT 95; BMI 30.7
--- NOTE | 2023-06-13 16:05 | EKG12_ITS ---
Test Reason : HTN Blood Pressure : / mmHG Vent. Rate : 079 BPM Atrial Rate : 079 BPM P-R Int : 156 ms QRS Dur : 106 ms QT Int : 374 ms P-R-T Axes : 030 -13 053 degrees QTc Int : 428 ms Normal sinus rhythm Incomplete right bundle branch block Borderline ECG Confirmed by Juan Valenzuela ([id number]), photographic editor LAYLA GRAHAM ([id number]) on 06/14/2023 8:30:27 AM Referred By: Confirmed By:Juan Valenzuela
--- NOTE | 2023-06-13 16:08 | EDS_ITS ---
HPI History of Present Illness Chief Complaint: Hypertension Informant: patient Narrative Narrative: Patient presents secondary to hypertension. She is currently 17 weeks . She states today was a more stressful day at work and when she checked her blood pressure was in the 160s systolic. She does complain of a headache but states that is not atypical for her. She has had no abdominal cramping or bleeding. This is her second . First was complicated by gestational diabetes but no problems with preeclampsia or eclampsia. [facility] Medical History 37 weeks gestation of Anxiety Care and examination of lactating mother Category II heart rate tracing during labor and delivery delivery delivered COVID-19 arrhythmia affecting , antepartum intolerance to labor, delivered, current hospitalization GDM, class A2 Gestational diabetes Gestational hypertension, third trimester High-risk in third trimester History of herpes labialis Puncture wound of plantar aspect of left foot Single live Home Medications magnesium oxide 400 mg (241.3 mg magnesium) tablet 400 mg PO DAILY 06/13/23 [History Last Taken Unknown] vit no.133-ferrous fumarate 28 mg-folic acid 800 mcg tablet () 1 tab PO DAILY 06/13/23 [History Last Taken Unknown] valacyclovir 1 gram tablet 1,000 mg PO DAILY 06/13/23 [History Last Taken Unknown] Allergy/AdvReac Type Severity Reaction Status Date / Time grass pollen Allergy Mild RUNNY NOSE Verified 06/13/23 15:49 Surgical History Hx of tonsillectomy Social History Smoking Status: Never smoker alcohol intake: current substance use type: does not use ROS ROS ED Constitutional Constitutional ED: Denies chills or fever(s) Eyes Eyes: Denies discharge from eye(s) ENT ENT ED: Denies discharge from eye(s), rhinorrhea or sore throat Cardiovascular Cardiovascular: Denies chest pain or palpitations Respiratory/Chest Respiratory/Chest: Denies cough or dyspnea Gastrointestinal Gastrointestinal: Denies abdominal pain, diarrhea, nausea or vomiting Genitourinary Genitourinary ED: Denies difficulty urinating or dysuria Musculoskeletal Musculoskeletal: Denies back pain or extremity pain Integumentary Denies Abrasions or rash Neurologic Neurologic: Reports headache(s); Denies weakness Psychiatric Psychiatric: Denies anxiety or depression Allergic/Immunologic Allergic/Immunologic ED: Denies lip swelling or urticaria EXAM Physical Exam Const Vital Signs: 06/13/23 15:49 06/13/23 16:29 Temperature 98.1 F Temperature Source Temporal Pulse Rate 95 80 Respiratory Rate 18 16 Blood Pressure 162/94 H 148/91 H Blood Pressure Mean 116 110 Pulse Ox 95 94 Oxygen Delivery Method Room Air Room Air Positive well nourished and well developed General Appearance ED: well developed HEENT Reports moist mucous membranes Eyes EOMs intact bilaterally Chest Wall inspection of chest normal and palpation of chest normal Resp normal respiratory effort and clear to auscultation bilaterally Cardio regular rate and regular rhythm GI non-tender Palpation: soft Extremity normal to inspection Neuro oriented x3 and no sensory deficits noted Motor Exam: strength 5/5 throughout Psych Mood & Affect: tearful Skin no rashes or lesions noted MDM MDM MDM Narrative Medical decision making narrative: Patient placed on nurse monitoring. EKG obtained to evaluate for cardiac arrhythmia/ischemia. Labwork obtained to evaluate for leukocytosis, anemia, and electrolyte derangement. Urinalysis obtained to evaluate for infection/hematuria. History & Record Review Discussion w/independent historian: Patient Lab Data Attestation: I reviewed the patient's lab results. Labs: Laboratory Results - last 24 hr 06/13/23 06/13/23 16:20 16:25 WBC 9.4 RBC 4.12 L Hgb 12.1 Hct 35.6 L MCV 86.4 MCH 29.4 MCHC 34.0 RDW Std Deviation 43.1 RDW Coeff of Jody 13.7 Plt Count 234 MPV 9.1 Immature Gran % (Auto) 0.400 Neut % (Auto) 70.0 Lymph % (Auto) 22.0 Boundary % (Auto) 6.5 Eos % (Auto) 0.9 Baso % (Auto) 0.2 Absolute Neuts (auto) 6.5 Absolute Lymphs (auto) 2.06 Nucleated RBC % 0 PT 12.9 INR 1.0 APTT 25.3 Sodium 138 Potassium 3.7 Chloride 107 Carbon Dioxide 23.0 Anion Gap 8 BUN 10 Creatinine 0.60 Estim Creat Clear Calc 146.39 Est GFR (MDRD) Af Amer 149 Est GFR (MDRD) Non-Af 123 BUN/Creatinine Ratio 16.6 Glucose 92 Calcium 8.8 Magnesium 2.1 Total Bilirubin 0.10 L Direct Bilirubin < 0.05 AST 11 L ALT 13 Alkaline Phosphatase 39 L Total Protein 7.4 Albumin 3.5 Globulin 3.9 Urine Color Yellow Urine Clarity Clear Urine pH 6.5 Ur Specific [place] 1.010 Urine Protein Negative Urine Glucose (UA) Normal Urine Ketones Negative Urine Occult Blood Negative Urine Nitrite Negative Urine Bilirubin Negative Urine Urobilinogen Normal Ur Leukocyte Esterase 25 H Urine RBC 0 SEEN Urine WBC 0 SEEN Ur Squamous Epith Cells 0-5 SEEN Urine Bacteria 0 SEEN Urine Mucus 0 SEEN EKG Initial EKG: Attestation: I personally reviewed and interpreted this EKG as follows: Interpretation: Sinus Rhythm (Sinus rhythm at 79 bpm. Incomplete right bundle. No acute ischemia. No evidence of LVH.) Treatment and Re-Evaluation :: CBC was normal white count 9.4 with a hemoglobin of 12.1. Coags unremarkable. Chemistry studies normal with a BUN of 10 and creatinine of 0.60. LFTs are normal. Urinalysis reveals no evidence of infection and no protein. EKG is sinus with no acute ischemia. I did not give patient anything for blood pressure. Her first 5 blood pressure readings were 162/94, 148/91, 138/84, 136/92, 149/86. On repeat evaluation patient feels well and has no complaints. heart tones were measured at 152. I was speaking with OB when they had an emergency and advised they will call me back. Patient's blood pressure remains with good control, most recent pressure 126/83. Patient wants to leave and not wait for return phone call. I will speak with OB when they are available to call. If they have any different i nstructions I will call the patient. Discharge Plan Triage Chief Complaint: Hypertension Other Complaint: ED Provider: Dary Gaviria Dx/Rx/DC Orders Clinical Impression: Second trimester , Hypertension Instructions: Understanding Preeclampsia Prescriptions: No Action valacyclovir 1 gram tablet 1,000 mg PO DAILY magnesium oxide 400 mg (241.3 mg magnesium) tablet 400 mg PO DAILY 28-800 mg-mcg tablet 1 tab PO DAILY Primary Care Provider: Goran Oneil Referrals: Mary Rogel MD [Med Staff - Active Staff] - As soon as possible Oneil,M Cristino PA, PA [Primary Care Provider] - Activity Restrictions/Additional Instructions: Please check your blood pressures regularly and keep a journal to take to next doctor's appointment. Disposition Disposition: Home, Self Care
[2023-06-13 16:29] VITALS: BP 148/91; PULSE 80; RESP 16; O2SAT 94
[2023-06-13 16:29] LABS: Absolute Lymphocyte Count 2.06 X10^3/uL (0.83-4.51); Absolute Neutrophil Count 6.5 X10^3/uL (2.0-7.7); Basophil# 0.02 X10^3/uL; Basophil% 0.2 % (0-1); Eosinophil# 0.08 X10^3/uL; Eosinophils% 0.9 % (0-5); Hematocrit 35.6 % (37-47); Hemoglobin 12.1 g/dL (12.0-15.0); Lymphocyte # 2.06 X10^3/ul (0.83-4.51); Mean Corpuscular Hgb 29.4 pg (27.0-32.0); Mean Corpuscular Volume 86.4 fL (81-99); Mean Platelet Vol. 9.1 fl (6.2-12.0); Monocyte# 0.61 X10^3/uL; Monocyte% 6.5 % (0-10); NRBC Flagged by Analyzer 0 % (0-5); Neutrophil # 6.54 X10^3/uL (2.7-7.7); Platelet Count 234 K/mm3 (150-450); RBC Distribution Width CV 13.7 % (11.6-14.6); RBC Distribution Width SD 43.1 fl (35.1-43.9); Red Blood Count 4.12 M/mm3 (4.2-5.4); White Blood Count 9.4 K/mm3 (4.4-11.0)
[2023-06-13 16:32] LABS: Bacteria 0 SEEN /hpf (None Seen); Mucous, Urine 0 SEEN /hpf (<or=2+); Red Blood Cells-Urine 0 SEEN /hpf (0-5); White Blood Cells 0 SEEN /hpf (0-5)
[2023-06-13 16:34] LABS: Color, Urine Yellow (Yellow); Glucose, Dipstick Normal (Normal); Ketone-Dipstick Negative (Negative); Leukocyte Esterase-Dipstick 25 /ul (Negative); Nitrite-Dipstick Negative (Negative); Occult Blood-Urine Negative /ul (Negative); Protein-Dipstick Negative (Negative); Urine Bilirubin Dipstick Negative (Negative); Urine Clarity Clear (Clear); Urine Urobilinogen Normal (Normal); Urine pH 6.5 (5.0 - 8.0)
[2023-06-13 16:38] LABS: Partial Thromboplast Time 25.3 Seconds (24.1-36.2); Prothrombin Time (Protime)PT. 12.9 SECONDS (11.7-14.9)
[2023-06-13 16:47] LABS: Squamous Epithelial Cells - UA 0-5 SEEN /hpf (5-10)
[2023-06-13 16:52] LABS: AST(SGOT) 11 U/L (15-37); Alanine Aminotransfer ALT/SGPT 13 U/L (13-56); Albumin, Serum 3.5 g/dL (3.2-5.0); Alkaline Phosphatase 39 U/L (45-117); Anion Gap 8 (5-15); BUN 10 mg/dL (7-18); BUN/Creat Ratio 16.6 RATIO (10-20); Bilirubin, Direct < 0.05 mg/dL (0.00-0.30); Calcium,Total 8.8 mg/dL (8.5-10.1); Chloride 107 mmol/L (98-107); EST Glomerular Filtration Rate 123 mL/min (>60); Est Glom Filt Rate - Afr Amer 149 mL/min (>60); Estimated Creatinine Clearance 146.39 ml/min; Globulin 3.9 g/dL (2.2-4.2); Glucose 92 mg/dL (74-106); Magnesium 2.1 mg/dL (1.6-2.6); Potassium 3.7 mmol/L (3.5-5.1); Protein, Total 7.4 g/dL (6.4-8.2); Sodium Level 138 mmol/L (136-145)
[2023-06-13 18:05] VITALS: BP 126/83; PULSE 87; RESP 18; O2SAT 96
[2023-06-13 18:13] VITALS: BP 126/83; PULSE 87; RESP 16; TEMP 36.9; O2SAT 96
[2023-06-13 18:14] VITALS: BP 126/83; PULSE 87; RESP 16; TEMP 36.9; O2SAT 96
== END 2023-06-13 18:17 | disposition home or self-care (01) ==
PROVIDERS: Emergency Provider Emergency Medicine; PCP Physician Assistant; Visit Provider Emergency Medicine
DX: O16.2 Unspecified maternal hypertension, second trimester (principal); Z3A.17 17 weeks gestation of pregnancy; O24.419 Gestational diabetes mellitus in pregnancy, unspecified control
CPT/HCPCS: 80048; 80076; 81001; 83735; 85025; 85610; 85730; 93005; 99285; A4216

== ENCOUNTER 2023-11-04 17:30 | Inpatient (IN) | payer OTHER, SELFPAY ==
[2023-11-04] VITALS (40 sets, daily range): BP systolic 118–136; BP diastolic 60–91; PULSE 70–93; RESP 12–19; TEMP 36.2–36.6; O2SAT 97–100; BMI 34.6
[2023-11-04 16:07] LABS: Hematocrit 33.8 % (37-47); Hemoglobin 11.2 g/dL (12.0-15.0); Mean Corp Hgb Conc 33.1 g/dL (32-36); Mean Corpuscular Hgb 28.7 pg (27.0-32.0); Mean Corpuscular Volume 86.7 fL (81-99); Mean Platelet Vol. 9.4 fl (6.2-12.0); Platelet Count 225 K/mm3 (150-450); RBC Distribution Width CV 12.5 % (11.6-14.6); RBC Distribution Width SD 39.2 fl (35.1-43.9); White Blood Count 10.6 K/mm3 (4.4-11.0)
[2023-11-04 17:03] LABS: AST(SGOT) 16 U/L (15-37); Alanine Aminotransfer ALT/SGPT 15 U/L (13-56); Creatinine, Serum 0.65 mg/dL (0.55-1.02); EST Glomerular Filtration Rate 114 mL/min (>60); Est Glom Filt Rate - Afr Amer 137 mL/min (>60); Estimated Creatinine Clearance 137.43 ml/min; Uric Acid 4.8 mg/dL (2.6-6.0)
[2023-11-04 17:05] LABS: Protein, Urine (Random) < 6.0 mg/dL (<11.9)
--- NOTE | 2023-11-04 17:36 | PCM.HP.OB ---
HPI - General General Date of Admission: 11/04/23 Date of Service: 11/04/23 HPI Narrative ALLISON MACK, is a 33 F @ 37.5 weeks who presents from the office due to severe range BP. pt with h/o CHTN and GMDA2 was scheduled for cs at 38 weeks. M recommended delivery btwn 37-38 weeks. pt reports no Headaches, no visual changes, no epigastric pain. pt was evaluated in office and counseled in office by Dr. Krishna about delivery today due to elevation in BPs. [facility] Medical History (Updated 11/04/23 @ 17:[address] Mei Vargas MD) High-risk in third trimester History of herpes labialis 37 weeks gestation of COVID-19 Care and examination of lactating mother delivery delivered Single live intolerance to labor, delivered, current hospitalization Category II heart rate tracing during labor and delivery Gestational hypertension, third trimester Anxiety Gestational diabetes arrhythmia affecting , antepartum GDM, class A2 Puncture wound of plantar aspect of left foot Home Medications ?Medication ?Instructions ?Recorded ?Last Taken ?Type magnesium oxide 400 mg (241.3 mg 400 mg PO DAILY headaches 06/13/23 Unknown History magnesium) tablet vit no.133-ferrous 1 tab PO DAILY 06/13/23 Unknown History fumarate 28 mg-folic acid 800 mcg tablet () valacyclovir 1 gram tablet 1,000 mg PO DAILY HSV1 06/13/23 Unknown History Allergy/AdvReac Type Severity Reaction Status Date / Time grass pollen Allergy Mild RUNNY NOSE Verified 11/04/23 17:41 Surgical History Hx of tonsillectomy Social History Smoking Status: Never smoker alcohol intake: current substance use type: does not use History Elective abortions Hx Para 0 Spontaneous abortions Hx # Term Pregnancies Ectopic pregnancies Hx # Pregnancies Multiple births # of living children NST FHR Rate Baby A Baseline: 140 Variability:: Moderate Accelerations:: 15 x 15 Decelerations:: None NST Reactive:: Yes FHR Category:: Category I Uterine Activity:: irregular Vital Signs Vital Signs Vital Signs: 11/04/23 15:49 11/04/23 15:49 11/04/23 15:54 Pulse Rate 80 78 Respiratory Rate Blood Pressure BP Systolic BP Diastolic Pulse Ox 98 11/04/23 15:54 11/04/23 15:59 11/04/23 15:59 Pulse Rate 86 Respiratory Rate Blood Pressure BP Systolic BP Diastolic Pulse Ox 99 98 11/04/23 16:04 11/04/23 16:04 11/04/23 16:08 Pulse Rate 87 Respiratory Rate Blood Pressure 133/89 H BP Systolic 133 BP Diastolic 89 Pulse Ox 97 11/04/23 16:08 11/04/23 16:08 11/04/23 16:08 Pulse Rate 93 Respiratory Rate 16 Blood Pressure BP Systolic BP Diastolic Pulse Ox 99 11/04/23 16:09 11/04/23 16:09 11/04/23 16:14 Pulse Rate 87 86 Respiratory Rate Blood Pressure BP Systolic BP Diastolic Pulse Ox 98 11/04/23 16:14 11/04/23 16:18 11/04/23 16:18 Pulse Rate 91 Respiratory Rate Blood Pressure 130/83 H BP Systolic 130 BP Diastolic 83 Pulse Ox 98 11/04/23 16:18 11/04/23 16:18 11/04/23 16:19 Pulse Rate 78 Respiratory Rate 16 Blood Pressure BP Systolic BP Diastolic Pulse Ox 98 11/04/23 16:19 11/04/23 16:24 11/04/23 16:24 Pulse Rate 80 Respiratory Rate Blood Pressure BP Systolic BP Diastolic Pulse Ox 99 98 11/04/23 16:28 11/04/23 16:28 11/04/23 16:28 Pulse Rate 80 Respiratory Rate 16 Blood Pressure 130/85 H BP Systolic 130 BP Diastolic 85 Pulse Ox 11/04/23 16:28 11/04/23 16:29 11/04/23 16:29 Pulse Rate 86 Respiratory Rate Blood Pressure BP Systolic BP Diastolic Pulse Ox 99 98 11/04/23 16:34 11/04/23 16:34 11/04/23 16:39 Pulse Rate 81 Respiratory Rate Blood Pressure 123/80 H BP Systolic 123 BP Diastolic 80 Pulse Ox 98 11/04/23 16:39 11/04/23 16:39 11/04/23 16:39 Pulse Rate 83 89 Respiratory Rate Blood Pressure BP Systolic BP Diastolic Pulse Ox 98 11/04/23 16:39 11/04/23 16:39 11/04/23 16:44 Pulse Rate 81 Respiratory Rate 16 Blood Pressure BP Systolic BP Diastolic Pulse Ox 99 11/04/23 16:44 11/04/23 16:49 11/04/23 16:49 Pulse Rate 88 Respiratory Rate Blood Pressure 131/91 H BP Systolic 131 BP Diastolic 91 Pulse Ox 98 11/04/23 16:49 11/04/23 16:49 11/04/23 16:49 Pulse Rate 88 Respiratory Rate 16 Blood Pressure BP Systolic BP Diastolic Pulse Ox 99 11/04/23 16:49 11/04/23 16:54 11/04/23 16:54 Pulse Rate 88 Respiratory Rate Blood Pressure BP Systolic BP Diastolic Pulse Ox 98 98 11/04/23 16:58 11/04/23 16:58 11/04/23 16:58 Pulse Rate 79 Respiratory Rate 16 Blood Pressure 121/79 H BP Systolic 121 BP Diastolic 79 Pulse Ox 11/04/23 16:58 11/04/23 16:59 11/04/23 16:59 Pulse Rate 84 Respiratory Rate Blood Pressure BP Systolic BP Diastolic Pulse Ox 99 98 11/04/23 17:04 11/04/23 17:04 Pulse Rate 72 Respiratory Rate Blood Pressure BP Systolic BP Diastolic Pulse Ox 98 Weight Weight: 91.5 kg Body Mass Index (BMI) 34.6 Physical Exam Narrative Abd: soft, gravid, non tender. No RUQ pain. Const alert and oriented x3 General Appearance: cooperative HEENT normocephalic GI GI Narrative: Gravid, non tender to palpation. OB / External & Speculum: external exam normal Extremity normal to inspection Skin no rashes or lesions noted Neuro oriented x3 and CN's II-XII intact bilaterally Psych Appearance: grossly normal Labs Labs Labs: Blood Type A POSITIVE Antibody Screen NEGATIVE Hct 33.8 % (37-47) L Hgb 11.2 g/dL (12.0-15.0) L Rhogam given: No Assessment & Plan (1) Chronic hypertension affecting : (2) Gestational diabetes: QUALIFIERS: Gestational diabetes mellitus control: insulin-controlled Trimester: third trimester Qualified Code(s): O24.414 - Gestational diabetes mellitus in , insulin controlled (3) High-risk in third trimester: (4) History of herpes labialis: (5) 37 weeks gestation of : PLAN: Plan Admit to L&D [place] FHR/TOCO Epidural if requested for pain Monitor VS PRE E labs wnl discussion with patient regarding delivery today - BP in office 160/110 along with GDMA2 and CHTN reviewed increased risks with patient- agreeable to proceed. OR team notified
[2023-11-04] MEDS: Lactated Ringers 1,000 ML 999 ML IV (17:40)
[2023-11-04] MEDS: Acetaminophen 500 MG Tablet 1000 MG PO (18:02)
[2023-11-04 18:26] LABS: Bedside Glucose 93 mg/dL (74-106)
[2023-11-04] MEDS: Sodium Citrate/Citric Acid 30 ML UDC PO (18:57)
[2023-11-04] MEDS: Lactated Ringers 1,000 ML 150 ML IV (18:57)
[2023-11-04] MEDS: Cefazolin 2 GM in 0.9% Normal Saline (100mL Bag) 100 ML IV (19:04)
[2023-11-04] MEDS: Ondansetron 4 MG/2 ML Vial IV (19:04)
--- NOTE | 2023-11-04 20:04 | EX.PCM.OBRPT ---
Details Operative Information Date of Procedure: 11/04/23 Pre-Operative Diagnosis: 37.5 weeks, CHTN with exacerbation, GDMA2, repeat c/s Post-Operative Diagnosis: same, live male Classification: Scheduled Procedure Type: low transverse lean process deployment consultant #1: Charline Hawkins Type of Anesthesia: Spinal Special Medications: hemoblast Antibiotic Given: Ancef 2 grams IV x1 Drain: Rojas to straight drain Estimated Blood Loss: 600 Fluids Replaced: 1000 Procedure Start Time: 19:25 Procedure Stop Time: 20:03 Time of Delivery: 19:33 Findings Description of Procedure: After informed consent was obtained the patient was taken the operating room she was given spinal anesthesia. She was then placed in the supine position. She was prepped and draped in the normal sterile fashion. Anesthesia was found to be adequate. At this time a Pfannenstiel skin incision was made with a knife was carried down to the underlying layer of the fascia. The fascial incision was then extended laterally using zurita scissor. Attention was then turned to the superior aspect of the fascial edge was grasped with 2 straight Rebuck clamps tented up and the rectus muscle dissected off sharply. Rectus muscles were then in the midline sharply and peritoneum was entered bluntly. Gentle opposing traction was placed. At this time the vesicouterine peritoneum was identified. Scalpel was used to make a uterine incision in a low transverse fashion. The uterus was then entered bluntly gentle opposing traction was placed to extend this incision. Membranes were ruptured clear. Infant's head was brought to the uterine incision was delivered atraumatically. was vigorous at delivery and delayed cord clamping performed. delayed cord clamping performed. Cord was clamped and cut was handed to the waiting nursery team. The Placenta was removed from the uterus. The uterus was then removed from the abdominal cavity. The uterus was cleared of all clots and debris using a lap. At this time the uterine incision was reapproximated using #1 Vicryl in a running locked fashion. Multiple figure of eight sutures were placed for hemostasis using 1-0 vicryl on uterine incsion Hemostasis was appreciated. Posterior cul-de-sac was then cleared of all clots and debris. Uterus was placed back in the abdominal cavity. Gutters were cleared of all clots and debris. Uterine incision was reevaluated and noted to be of excellent hemostasis. At this time the peritoneum was grasped with Kellys reapproximated using #2 Vicryl suture in a running fashion. Rectus muscle was reapproximated using 2-0 vicryl in an interrupted mattress fashion. oozing noted on rectus and fascial edge. cautery used and hemoblast placed. Fascia was then reapproximated using #1 Vicryl in a running fashion. Subcu layer was irrigated with NS, reapproximated with #2 0 plain gut suture in an interrupted fashion. Subcu layer was closed using 4-0 Monocryl in a subcu fashion. Dry sterile dressing was applied. Instrument lap needle count correct ?2. Anticipated normal postoperative course. Presentation: Positive for Vertex Amniotic Membrane Rupture Type: Artificial Amniotic Fluid Description: Clear Placental Delivery Description: Expressed Placenta Disposition: [facility] Cord Vessel Description: 3 Vessels Cord Entanglement: None Infant A Gender: Male (1 minute): 9 (5 minute): 9 Delayed Cord Clamping: Yes Complications Risks of Surgery Discussed w/Patient: Bleeding, Anesthesia Risks, Infection, Need for Future C-Sections and Injury to surrounding structure(s) including bowel and bladder Complications: none
[2023-11-04] MEDS: Oxytocin 15 Units/NS 250ml 15 UNITS/250 ML IV.SOLN 83 UNITS IV (20:25)
[2023-11-04] MEDS: Ketorolac 30 MG/ML Syringe IV (20:34)
[2023-11-04] MEDS: 0.9% Saline Lock 10 ML Syringe IV (20:36)
[2023-11-04 21:05] LABS: Bedside Glucose 94 mg/dL (74-106)
[2023-11-04 21:38] LABS: Syphilis Antibodies Non-reactive
[2023-11-04] MEDS: Lactated Ringers 1,000 ML 100 ML IV (23:26)
[2023-11-05] VITALS (7 sets, daily range): BP systolic 110–129; BP diastolic 7–78; PULSE 75–85; RESP 16–20; TEMP 36.1–36.6; O2SAT 97–98
[2023-11-05] MEDS: Acetaminophen 500 MG Tablet 1000 MG PO ×5 (00:23→23:50)
[2023-11-05] MEDS: Ketorolac 30 MG/ML Syringe IV ×3 (02:20→14:46)
[2023-11-05 05:59] LABS: Hematocrit 26.9 % (37-47); Hemoglobin 9.1 g/dL (12.0-15.0); Mean Corp Hgb Conc 33.8 g/dL (32-36); Mean Corpuscular Hgb 29.5 pg (27.0-32.0); Mean Corpuscular Volume 87.3 fL (81-99); Platelet Count 173 K/mm3 (150-450); RBC Distribution Width CV 12.6 % (11.6-14.6); RBC Distribution Width SD 39.6 fl (35.1-43.9); Red Blood Count 3.08 M/mm3 (4.2-5.4); White Blood Count 11.2 K/mm3 (4.4-11.0)
[2023-11-05 06:12] LABS: Bedside Glucose 98 mg/dL (74-106)
[2023-11-05] MEDS: 0.9% Saline Lock 10 ML Syringe IV ×2 (08:32→14:47)
--- NOTE | 2023-11-05 13:35 | PN.OBGYN_ITS ---
Subjective Subjective Pain controlled. Denies complaints. Objective Data Objective Data Vital Signs: Vital Signs Temp Pulse Resp BP Pulse Ox O2 Del Method 97.6 F L 76 16 122/78 H 98 Room Air 11/05/23 12:26 11/05/23 12:26 11/05/23 12:26 11/05/23 12:26 11/05/23 12:26 11/05/23 12:26 Oxygen Delivery Method Room Air Weight: 201 lb 11.567 oz Body Mass Index (BMI) 34.6 Intake & Output: Intake and Output for Last 24 Hours 11/03/23 11/04/23 11/05/23 23:59 23:59 23:59 Intake Total 1377.5 / 1377.5 703.33 / 703.33 Output Total 800 / 800 1700 / 1700 Balance 577.5 / 577.5 -996.67 / -996.67 Lab / Micro Data Attestation: I reviewed the patient's lab results. 11/05/23 05:45 11/04/23 15:45 Labs: Laboratory Results - last 24 hr 11/04/23 15:45: WBC 10.6, RBC 3.90 L, Hgb 11.2 L, Hct 33.8 L, MCV 86.7, MCH 28.7, MCHC 33.1, RDW Std Deviation 39.2, RDW Coeff of Jody 12.5, Plt Count 225, MPV 9.4, Creatinine 0.65, Estim Creat Clear Calc 137.43, Est GFR (MDRD) Af Amer 137, Est GFR (MDRD) Non-Af 114, Uric Acid 4.8, AST 16, ALT 15, U Random Total Protein < 6.0, Urine Creatinine 28.90, Protein/Creatinin Ratio TNP, Syphilis Total Ab Non-reactive, Blood Type A POSITIVE, Antibody Screen NEGATIVE 11/04/23 18:04: POC Glucose 93 11/04/23 20:43: POC Glucose 94 11/05/23 05:45: WBC 11.2 H, RBC 3.08 L, Hgb 9.1 L, Hct 26.9 L, MCV 87.3, MCH 29.5, MCHC 33.8, RDW Std Deviation 39.6, RDW Coeff of Jody 12.6, Plt Count 173, MPV 9.0 11/05/23 05:50: POC Glucose 98 Physical Exam Const alert, oriented x3 and no apparent distress HEENT normocephalic GI soft to palpation, non-tender and non-distended GI Narrative: fundus firm, mid & below umbilicus Incision - bandage c/d/i Extremity normal to inspection and no calf tenderness Assessment & Plan (1) Chronic hypertension affecting : COMMENT: POD#1 (2) Gestational diabetes: QUALIFIERS: Gestational diabetes mellitus control: insulin- controlled Trimester: third trimester Qualified Code(s): O24.414 - Gestational diabetes mellitus in , insulin controlled (3) Delivery by section: PLAN: Plan Heme - HDS. CBC reviewed. Start iron for anemia. ID - AF, no signs infection Chtn - BP's normal since delivery GI/ - no issues
[2023-11-05] MEDS: Ibuprofen 600 MG Tablet PO (20:39)
[2023-11-05] MEDS: oxyCODONE 5 MG Tablet PO (23:54)
[2023-11-06 01:50] VITALS: BP 121/66; PULSE 74; RESP 16; TEMP 36.7; O2SAT 100
[2023-11-06] MEDS: Ibuprofen 600 MG Tablet PO ×2 (02:42→08:38)
[2023-11-06] MEDS: oxyCODONE 5 MG Tablet PO ×2 (03:54→08:38)
[2023-11-06] MEDS: Acetaminophen 500 MG Tablet 1000 MG PO (05:31)
--- NOTE | 2023-11-06 08:19 | PN.OBGYN_ITS ---
Subjective Subjective Doing well. Pain controlled. Ambulating without difficulty. Mild lochia. Breast feeding. Objective Data Objective Data Vital Signs: Vital Signs Temp Pulse Resp BP Pulse Ox O2 Del Method 98.1 F 74 16 121/66 H 100 Room Air 11/06/23 01:50 11/06/23 01:50 11/06/23 01:50 11/06/23 01:50 11/06/23 01:50 11/06/23 01:50 Oxygen Delivery Method Room Air Weight: 91.5 kg Body Mass Index (BMI) 34.6 Intake & Output: Intake and Output for Last 24 Hours 11/04/23 11/05/23 11/06/23 23:59 23:59 23:59 Intake Total 1377.5 / 1377.5 703.33 / 703.33 Output Total 800 / 800 1700 / 1700 Balance 577.5 / 577.5 -996.67 / -996.67 Lab / Micro Data 11/05/23 05:45 11/04/23 15:45 ROS Constitutional Constitutional: Denies fatigue, fever(s) or malaise Eyes Eyes: Denies change in vision ENT HEENT: Denies dizziness or headache(s) Cardiovascular Cardiovascular: Denies chest pain, dyspnea or lightheadedness Respiratory/Chest Respiratory/Chest: Denies cough or dyspnea Gastrointestinal Gastrointestinal: Denies change in bowel habits Genitourinary Genitourinary: Denies burning urination or genital lesions Integumentary Integumentary: Denies rash Neurologic Neurologic: Denies confusion, dizziness, headache(s), numbness or weakness Physical Exam Const alert General Appearance: cooperative GI GI Narrative: soft, moderate distention, fundus firm, appropriately tender. Abdominal bandage clean dry and intact Assessment & Plan (1) Delivery by section: (2) Gestational diabetes: QUALIFIERS: Gestational diabetes mellitus control: insulin- controlled Trimester: third trimester Qualified Code(s): O24.414 - Gestational diabetes mellitus in , insulin controlled (3) Chronic hypertension affecting : COMMENT: POD#2 PLAN: Plan Discharge home
--- NOTE | 2023-11-06 08:23 | PCM.DC.SUM ---
Providers Date of Admission: 11/04/23 Date of Discharge: 11/06/23 Primary Care Physician: MARTINE Jhaveri Reason For Visit: REPEAT Diagnosis Discharge Diagnosis (1) Delivery by section: Status: Acute (2) Gestational diabetes: Status: Acute Code(s): O24.419 - Gestational diabetes mellitus in , unspecified control Qualifiers: Gestational diabetes mellitus control: insulin-controlled Trimester: third trimester Qualified Code(s): O24.414 - Gestational diabetes mellitus in , insulin controlled (3) Chronic hypertension affecting : Status: Chronic Code(s): O10.919 - Unspecified pre-existing hypertension complicating , unspecified trimester Plan Discharge home Medications at Discharge Home Medications magnesium oxide 400 mg (241.3 mg magnesium) tablet 400 mg PO DAILY headaches 06/13/23 vit no.133-ferrous fumarate 28 mg-folic acid 800 mcg tablet () 1 tab PO DAILY 06/13/23 oxycodone 5 mg tablet 5 mg PO Q6H 7 days #7 tabs 11/06/23 Hospital Course Operations section Procedures None Summary of Care Provided Minutes Spent on Discharge: 20 Hospital Course: Admitted for repeat due to CHTN at term. Uncomplicated delivery and . Breast feeding at discharge Physical Exam Const alert General Appearance: cooperative GI GI Narrative: soft, moderate distention, fundus firm, appropriately tender. Abdominal bandage clean dry and intact Weight / BMI Weight Weight: 91.5 kg Body Mass Index (BMI) 34.6 ABG / Lab / Microbiology Data 11/05/23 05:45 11/04/23 15:45 D/C Instructions Discharge Diet: No restrictions May resume sexual activity in: 4-6 weeks Lifting Restrictions: 20 pounds Additional Activity Instructions: Nothing in the vagina for 4-6 weeks. You may return to work/school in 6 weeks. Call your doctor if your incision/area has: Continuous Slow Oozing, Sudden Increased Bleeding, Increased Pain/ Swelling, Increased Redness and Foul Smelling Discharge Call your doctor if you observe: Fever of 101 or Higher and Using more than 1 pad per hour (for 2 hours) Suture Line Care: Avoid Pulling/Pushing and Avoid Pinching/Bending Cleanse incision/area with: Keep Dressing Clean & Dry Please Follow Up With: Ivy José MD When: Call to make an appointment for an incision check in 1-2 [phone]. You will need a post check in 6 weeks. Meaningful Use Info Meaningful Use Meaningful Use Diagnoses (Choose all that apply): None applicable Ischemic Stroke Statin Dosing Therapy Reference: STATIN DOSE THERAPY REFERENCE: * Patients > 75 years receive moderate or high dose statin therapy. * Patients 75 years or YOUNGER should receive HIGH intensity statin dose unless contraindicated. You will be required to document reason for non-treatment if statin daily dose does not meet guidelines. HIGH DOSE STATIN THERAPY DAILY Atorvastatin > than or = to 40 mg Rosuvastatin > than or = to 20 mg Amlodipine + Atorvastatin > than or = to 2.5/40 mg Ezetimibe + Simvastatin 10/80 mg Simvastatin 80mg Discharge Plan Admission Admit Date/Time: 11/04/23 17:30 Primary Reason for Your Visit: repeat Attending Provider: Mei Vargas Primary Care Provider: Goran Oneil Discharge Orders/Prescriptions Prescriptions: New oxycodone 5 mg Tablet 5 mg PO Q6H 7 Days Qty: 7 0RF Continued magnesium oxide 400 mg (241.3 mg magnesium) tablet 400 mg PO DAILY 28-800 mg-mcg tablet 1 tab PO DAILY Discontinued Humulin N NPH Insulin KwikPen 100 unit/mL (3 mL) insulin pen 16 unit subcut .HS valacyclovir 1 gram tablet 1,000 mg PO DAILY Referrals / Follow Up: Goran Oneil, PA [Primary Care Provider] - Disposition Disposition (needs filled in before D/C Order can be placed): Home, Self Care
[2023-11-06 08:41] VITALS: BP 124/81; PULSE 83; RESP 17; TEMP 36.3; O2SAT 98
[2023-11-06] MEDS: Senna/Docusate Sodium 1 Tablet PO (10:35)
--- NOTE | 2023-11-06 15:31 | CASEMGMT ---
Social Work Assessment Labor and Delivery Unit Patient Address: [address] [place], [place] [address] [address] Phone number: [phone] Date of Referral: 11/04/23 Time of Referral:? 2120 Referred By: Dr. Jamil Date of Intervention: 11/06/23?? Time of Intervention:? 1129 Reason for Referral:? hx of anxiety Sw completed chart review and acknowledges social work consult due to maternal mental health history of anxiety. Sw presented to bedside and introduced self to mother of baby (DEJUAN- Nicolette) and father of baby (FOJoce- Mg). Sw explained reason for sw involvement and completed psychosocial assessment. MOB completed [place] Depression Scale. History obtained from: medical records, MOB and FOB Household composition: Currently residing in the family home is DEJUAN, OTONIEL, their 2 year old daughter- Jaya and baby when ready for discharge. Parents deny any issues or concerns with housing, reporting it is safe and secure. Patient's parent/guardian status:? DEJUAN states that she and OTONIEL have been together for 12 years after meeting by happenstance. No concerns reported of domestic violence or intimate partner violence. Medical History: ?DEJUAN is 33 year old female who is 2, para 1- now 2 following labor and delivery of . DEJUAN received routine care during with [facility]. DEJUAN presented to scheduled appointment and was then taken to labor and delivery where she delivered baby via repeat due to high blood pressure. Baby was born on 11/04/23 at 37 weeks gestation. Baby boy, named Gagandeep was born weighing 6lb 4oz with apgars of 9 and 9 at one and five minutes of life respectfully. DEJUAN is breast feeding and states that it is going well, and that baby will be followed by Dr. Madrigal for pediatrics. Educational Status:? Both parents graduated from high school, MOB obtained two advanced degrees. No issues with reading, learning or comprehension. Financial Status: Both parents are gainfully employed outside of the home. 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 Infant Supplies:??Parents have obtained all necessary baby supplies, including: car seat, safe sleep space, clothes, diapers and wipes. Childcare/Caregiver(s):? DEJUAN states that she will be the primary caregiver to baby along with FOB during her maternity leave. When DEJUAN returns to work in January they have a lpn rn that they trust who has been providing childcare for their daughter. Transportation:?? Both parents have their drivers license and reliable means of transportation. No barriers at this time. Programs/Agencies Involved: ???Parents are over income for community resources that provide financial assistance. DEJUAN denies being connected to any mental health services or supports. Children Services/Legal Issues:?NO history of children services involvement, no issues or concerns warranting referral to be made at this time. ?? Behavioral Health Issues: ??Mental Health History:?FOJoce denies mental health diagnoses. DEJUAN states that she has never been officially diagnosed with anxiety or depression, however she reports that in June of this year she was not feeling like herself. MOB states that for a couple of weeks she felt disengaged, had low energy and was not her happy energetic self. DEJUAN states that she talked to her OBGYN who prescribed her zoloft. DEJUAN states that she is stil prescribed zoloft and does not intent of stopping at any time during her period. DEJUAN denies her anxiety ever impacting her daily ability to function. ?? Substance Use History:?Parents deny substance use prior to or during . ? Family History:?Parents deny family substance use or significant mental health diagnoses. ? Drug Screens: No drug screens observed in chart review. ?? Family/Social Stressors:? Parents deny any issues, concerns or stressors at this time. Support Systems: DEJUAN states that FOB and both sets of grandparents are her biggest supports at this time. Depression/Shaken Baby/Safe Sleeping:? Leticia educated parents on baby blues and mood and anxiety disorders to be on the lookout for. Parents express understanding. MOB completed [place] Depression Scale, her score was a 3. Sw provided education and support. FOB states that if MOB were to struggle during her period he would be able to recognize that and would know how to help and support her. Leticia educated parents on shaken baby prevention and ABCs of safe sleep. Parents express understanding. ASSESSMENT:? MOB and baby admitted following labor and delivery. MOB states that although she did not go to her appointment anticipating delivering baby that same day, she is happy with how things went and she is thankful she and baby are healthy. MOB and FOB observed to have strong supportive relationship. MOB observed holding and providing loving and appropriate hands on care of . MOB with history of anxiety that presented itself for the first time in her life in June- during her . MOB stated that she did not feel like herself during that time and got started on zoloft- prescribed by her OBGYN. MOB states that the zoloft has significantly helped and she does not intent on stopping during this time. Parents have obtained all necessary baby supplies and have natural supports in place. Parents polite and talkative during completion of psychosocial assessment. PLAN:? MOB and baby to be discharged when medically ready. ?No other services requested or indicated. Filemon Cody, POWER CLEANER OPERATOR, PROFESSOR OF POLITICAL SCIENCE
== END 2023-11-06 11:30 | disposition home or self-care (01) | DRG 788 ==
PROVIDERS: Obstetrics & Gynecology; Admitting Provider Obstetrics & Gynecology; PCP Physician Assistant; Referring Provider Obstetrics & Gynecology; Visit Provider Obstetrics & Gynecology
DX: O10.02 Pre-existing essential hypertension complicating childbirth (principal); O24.424 Gestational diabetes mellitus in childbirth, insulin controlled; Z86.16 Personal history of COVID-19; Z37.0 Single live birth; Z3A.37 37 weeks gestation of pregnancy; Z86.19 Personal history of other infectious and parasitic diseases
CPT/HCPCS: 59025; 59050; 82565; 82570; 82962; 84156; 84450; 84460; 84550; 85027; 86780; 86850; 86900; 86901; 99221; J7120; A4216; G0378; J2405